=== PATIENT | female | born 1960 | race Caucasian/White ===

== ENCOUNTER → 2017-11-07 08:17 | Outpatient (CLI) | payer OTHER, SELFPAY ==
--- NOTE | 2017-11-07 08:27 | HPBI_ITS ---
MAMMOGRAPHY - BILATERAL SCREENING REASON FOR EXAM: Female, 57 years old. Routine annual screening examination. PERTINENT HISTORY: Sister with breast cancer. Remote bilateral breast reduction. TECHNIQUE: Digital bilateral breast paramjit (3D mammographic acquisition) in the CC and MLO projections. 2-D mediolateral oblique (MLO) and craniocaudad (CC) views of both breasts were obtained. CAD: Full Field Digital Mammography with Computer Added Detection was performed. COMPARISON: Comparison is made with prior outside examination dated November 04, 2016. FINDINGS: Breast Composition: The breasts are almost entirely fatty. There now is evidence of a 9 mm slightly irregular nodule with focal calcification in the axillary region of the left breast seen only on the mediolateral view. On the craniocaudad view, there appears to be a area of spiculation in the lateral portion. The patient should be recalled for exaggerated craniocaudad view of the left breast as well ultrasound. No other significant abnormalities are identified. HPBI/SCREENING MAMM (CAD), BILAT IMPRESSION: New nodular density in the axillary region of the left breast as described. The patient should be recalled for an exaggerated craniocaudal view of the left breast and ultrasound. ASSESSMENT CATEGORY: BIRADS Category 0: Incomplete. Need additional imaging evaluation. A letter regarding these results will be sent to the patient by the facility within 30 days. Approximately 10% of breast cancers are not detected by mammography. A normal mammogram should not delay biopsy of a clinically suspicious abnormality. [id number] Electronically Signed: Varun Escobar MD at 9:47 EST Tel [phone], Service support ,
== END ==
PROVIDERS: Family Provider Internal Medicine; PCP Internal Medicine; Visit Provider Nurse Practitioner Women's Health
DX: Z12.31 Encounter for screening mammogram for malignant neoplasm of breast (principal)
CPT/HCPCS: 77063; 77067

== ENCOUNTER → 2017-11-12 07:32 | Outpatient (CLI) | payer OTHER, SELFPAY ==
--- NOTE | 2017-11-12 07:36 | HPBI_ITS ---
MAMMOGRAPHY - UNILATERAL DIAGNOSTIC: LEFT BREAST REASON FOR EXAM: Female, 57 years old. Abnormal screening mammogram. PERTINENT HISTORY: Sister with breast cancer. TECHNIQUE: Exaggerated craniocaudad view of the left breast as well as tomographic examination of the left breast were obtained. CAD: Full Field Digital Mammography with Computer Added Detection was performed. COMPARISON: Comparison is made with prior mammogram dated November 07, 2017. FINDINGS: There is a persistent 7 mm nodular density with calcification in the upper the lateral portion of the breast. Correlation with ultrasound is recommended. BI/DIAG MAMM W/CAD, UNILAT IMPRESSION: Stable appearance of the nodular density as described. Correlation with ultrasound is recommended. ASSESSMENT CATEGORY: BIRADS Category 0: Incomplete. Need additional imaging evaluation. A letter regarding these results will be sent to the patient by the facility within 30 days. Approximately 10% of breast cancers are not detected by mammography. A normal mammogram should not delay biopsy of a clinically suspicious abnormality. Electronically Signed: Varun Escobar MD at 9:22 EST Tel [phone], Service support ,
--- NOTE | 2017-11-12 07:37 | US_ITS ---
STUDY: ULTRASOUND BREAST - LEFT REASON FOR EXAM: Female, 57 years old. Abnormal screening mammogram. TECHNIQUE: Axial and longitudinal images of the LEFT breast were performed with a high resolution ultrasound transducer. COMPARISON: Comparison is made with prior mammograms in earlier in the day as well as prior mammogram dated November 07, 2017. FINDINGS: LEFT Breast: The left axillary region was examined by ultrasound. There is a 9 mm x 9 mm x 5 mm hypoechoic nodule most likely represent a small lymph node. A calcification is seen within it. Adjacent to this, there is a 5 mm x 5 mm x 2 mm cyst. US/Breast Limited Unilateral IMPRESSION: The mammographic findings most likely corresponds to a benign appearing lymph node with focal calcification. ASSESSMENT CATEGORY: BIRADS Category 2: Benign. A letter regarding these results will be sent to the patient by the facility within 30 days. Electronically Signed: Varun Escobar MD at 10:18 EST Tel [phone], Service support ,
== END ==
PROVIDERS: Family Provider Internal Medicine; PCP Internal Medicine; Visit Provider Nurse Practitioner Women's Health
DX: R92.8 Other abnormal and inconclusive findings on diagnostic imaging of breast (principal); Z80.3 Family history of malignant neoplasm of breast
CPT/HCPCS: 76642; 77065

== ENCOUNTER → 2018-11-21 09:31 | Outpatient (CLI) | payer OTHER, SELFPAY ==
[2018-11-20 15:30] VITALS: BMI 29.2
--- NOTE | 2018-11-21 09:39 | BI_ITS ---
MAMMOGRAPHY - BILATERAL SCREENING REASON FOR EXAM: Female, 58 years old. Routine annual screening examination. PERTINENT HISTORY: Sister with breast cancer. History of prior bilateral breast reduction surgery. TECHNIQUE: Digital bilateral breast rusty (3D mammographic acquisition) in the CC and MLO projections. 2-D mediolateral oblique (MLO) and craniocaudad (CC) views of both breasts were obtained. CAD: Full Field Digital Mammography with Computer Added Detection was performed. COMPARISON: Comparison is made with prior mammogram dated November 07, 2017 and November 12, 2007. FINDINGS: Breast Composition: The breasts are almost entirely fatty. There are no dominant masses or suspicious calcifications. The previously seen small nodular density in the axillary region of the left breast has decreased in size. Persistent calcification is seen within it. The patient has a history of prior biopsy of this nodule. No other significant abnormalities are identified. BI/SCREEN MAMM (CAD) W/RUSTY BILAT IMPRESSION: Interval decrease in size of the small nodular density in the axillary region of the left breast as described. Yearly follow-up mammogram recommended. (A) ASSESSMENT CATEGORY: BIRADS Category 2: Benign. A letter regarding these results will be sent to the patient by the facility within 30 days. Approximately 10% of breast cancers are not detected by mammography. A normal mammogram should not delay biopsy of a clinically suspicious abnormality. [id number] Electronically Signed: Varun Escobar MD at 9:10 EST , Service support ,
== END ==
PROVIDERS: Referring Provider Nurse Practitioner Women's Health; Visit Provider Nurse Practitioner Women's Health
DX: Z12.31 Encounter for screening mammogram for malignant neoplasm of breast (principal)
CPT/HCPCS: 77063; 77067

== ENCOUNTER → 2018-11-30 08:25 | Outpatient (CLI) | payer OTHER, SELFPAY ==
[2018-11-20 15:30] VITALS: BMI 29.2
[2018-11-30 13:15] LABS: Anion Gap 5 (5-15); BUN 21 mg/dL (7-18); BUN/Creat Ratio 22.3 RATIO (10-20); Calcium,Total 9.2 mg/dL (8.5-10.1); Chloride 108 mmol/L (98-107); Creatinine, Serum 0.94 mg/dL (0.55-1.02); EST Glomerular Filtration Rate 65 mL/min (>60); Est Glom Filt Rate - Afr Amer 78 mL/min (>60); Glucose 72 mg/dL (74-106); Potassium 3.8 mmol/L (3.5-5.1); Sodium Level 142 mmol/L (136-145); Thyroid Stim Hormone (TSH) 0.89 uIU/mL (0.358-3.74)
== END ==
PROVIDERS: PCP Internal Medicine; Visit Provider Nurse Practitioner Family
DX: I10 Essential (primary) hypertension (principal)
CPT/HCPCS: 36415; 80048; 84443

== ENCOUNTER → 2019-01-22 10:45 | Outpatient (CLI) | payer OTHER, SELFPAY ==
[2019-01-01 09:31] VITALS: BMI 29.8
--- NOTE | 2019-01-22 10:48 | EKG12_ITS ---
Test Reason : HTN Blood Pressure : / mmHG Vent. Rate : 068 BPM Atrial Rate : 068 BPM P-R Int : 158 ms QRS Dur : 086 ms QT Int : 400 ms P-R-T Axes : 061 038 062 degrees QTc Int : 425 ms Normal sinus rhythm Nonspecific T wave abnormality Abnormal ECG Confirmed by SUKH LAROSE, AXEL ([id number]), commercial production editor BETTE JOSHI ([id number]) on 01/25/2019 12:06:14 PM Referred By: Eddy Villegas Confirmed By:AXEL LUZ MD
== END ==
PROVIDERS: Family Provider Internal Medicine; PCP Internal Medicine; Referring Provider Internal Medicine; Visit Provider Internal Medicine
DX: I10 Essential (primary) hypertension (principal)
CPT/HCPCS: 93005

== ENCOUNTER → 2019-03-03 | Outpatient (CLI) | payer OTHER, SELFPAY ==
[2019-01-01 09:31] VITALS: BMI 29.8
--- NOTE | 2019-03-03 09:58 | RDU_ITS ---
Reason For Study: HTN Right Renal Artery Left Renal Artery Right renal artery ostium 94/28 Left renal artery ostium 124/45 RSV/EDV. PSV/EDV. Right renal artery proximal 157/40 Left renal artery proximal PSV/EDV PSV/EDV. 144/56 . Right renal artery mid 167/72 Left renal artery mid 142/58 PSV/EDV. PSV/EDV . Right renal artery distal 79/29 Left renal artery distal 66/23 PSV/EDV. PSV/EDV. Right Renal Parenchyma Left Renal Parenchyma Upper Pole Medula 29/12 PSV/EDV. Left upper pole medulla 44/15 Right upper pole medulla EDR 0.41 . PSV/EDV . Right upper pole medulla R.I. Left upper pole medulla EDR 0.34 . 0.57 . Left upper pole medulla R.I. 0.67 . Upper Pelon Cortx 19/6 PSV/EDV. UP Cortex 24/11 PSV/EDV. Right upper pole cortex EDR 0.32 . Left upper pole cortex EDR 0.46 . Right upper pole cortex R.I. 0.68 . Left upper pole cortex R.I. 0.53 . Right lower Pole medulla 35/15 Left lower Pole medulla 24/9 PSV/EDV . PSV/EDV . Right lower pole medulla EDR 0.43 . Left lower pole medulla EDR 0.38 . Right lower pole medulla R.I. Left lower pole medulla R.I. 0.64 . 0.57 . Lower Pole Cortx 17/7 PSV/EDV. Lower Pole Cortex 24/9 PSV/EDV. Left lower pole cortex EDR 0.41 . Right lower pole cortex EDR 0.38 . Left lower pole cortex R.I. 0.61 . Right lower pole cortex R.I. 0.63 . Left Renal Hilar Right Renal Hilar LT Hilar avg 89/36 PSV/EDV . Right Hilar avg 65/25 PSV/EDV. Left hilar acceleration time 60 Right hilar acceleration time 50 m/sec. m/sec. Left Renal Dimensions Right Renal Dimensions Left kidney size 10.10 cm . Right kidney size 9.84 cm . Left cortical dimension 1.47 cm . Right cortical dimension 1.50 cm . Aorta Proximal abdominal aorta 2.59cm x 2.71 cm . Proximal abdominal aorta peak systolic velocity is 113 cm/sec . Distal abdominal aorta 1.73cm x 1.78 cm . Distal abdominal aorta peak systolic velocity is 76 cm/sec . Difficult to visualize mid Ao due to bowel gas. Interpretation Summary <60% stenosis bilateral renal arteries Right kidney 9.84cm length Left kidney 10.1 cm length Proximal aorta 2.59 x 2.71cm with slightly elevated velocity of 113 cm/sec flow. Findings likely not clinically significant. Ordering Physician: Lorena Wang Referring Physician: Lorena Wang Performed By: Marta Adams, MARNIE, RVT
== END | disposition home or self-care (01) ==
PROVIDERS: Family Provider Nurse Practitioner; PCP Nurse Practitioner; Referring Provider Nurse Practitioner; Visit Provider Nurse Practitioner
DX: I10 Essential (primary) hypertension (principal)
CPT/HCPCS: 93975

== ENCOUNTER → 2019-06-08 08:01 | Outpatient (CLI) | payer OTHER, SELFPAY ==
[2019-01-01 09:31] VITALS: BMI 29.8
[2019-06-08 09:28] LABS: ALB/GLOB Ratio 1.1 RATIO (0.9-2.4); AST(SGOT) 20 U/L (15-37); Alanine Aminotransfer ALT/SGPT 21 U/L (13-56); Albumin, Serum 3.6 g/dL (3.2-5.0); Alkaline Phosphatase 82 U/L (45-117); Anion Gap 6 (5-15); BUN 18 mg/dL (7-18); BUN/Creat Ratio 21.6 RATIO (10-20); Calcium,Total 8.8 mg/dL (8.5-10.1); Chloride 110 mmol/L (98-107); Creatinine, Serum 0.83 mg/dL (0.55-1.02); EST Glomerular Filtration Rate 74 mL/min (>60); Est Glom Filt Rate - Afr Amer 90 mL/min (>60); Globulin 3.3 g/dL (2.2-4.2); Glucose 74 mg/dL (74-106); Potassium 3.8 mmol/L (3.5-5.1); Protein, Total 6.9 g/dL (6.4-8.2); Sodium Level 145 mmol/L (136-145)
== END ==
PROVIDERS: Family Provider Nurse Practitioner; PCP Nurse Practitioner; Referring Provider Nurse Practitioner; Visit Provider Nurse Practitioner
DX: R79.9 Abnormal finding of blood chemistry, unspecified (principal); I10 Essential (primary) hypertension
CPT/HCPCS: 36415; 80053

== ENCOUNTER → 2019-06-30 08:42 | Outpatient (CLI) | payer OTHER, SELFPAY ==
[2019-01-01 09:31] VITALS: BMI 29.8
--- NOTE | 2019-06-30 08:50 | ECHOCS_ITS ---
Reason For Study: Sinus Simeon Procedure This was a 2D Doppler, Color Flow transthoracic echocardiogram. Contrast injection was performed. The study was technically difficult. Exam performed in department. Left Ventricle Normal size and thickness. The estimated ejection fraction is 65 %. Stage 1 diastolic dysfunction. No regional wall motion abnormalities noted. Right Ventricle Normal size and thickness. Normal systolic function. Atria Normal left atrium. Normal right atrium. Normal atrial septum. Mitral Valve The mitral valve is structurally normal. No prolapse or stenosis seen. Trivial mitral valve insufficiency. Tricuspid Valve Normal tricuspid valve. Trivial tricuspid valve insufficiency. Unable to estimate RV systolic pressure due to insufficient tricuspid regurgitant envelope. Aortic Valve Trisinus/trileaflet aortic valve. Normal aortic valve. Pulmonic Valve Normal pulmonic valve. Trivial pulmonic valve insufficiency. Great Vessels Normal aortic root. Normal arch. Normal inferior vena cava. Inferior vena cava collapse with sniff. Pericardium/Pleural No pericardial effusion. MMode/2D Measurements & Calculations LVIDd: 3.9 cm IVSd: 1.1 cm Ao root diam: 3.6 cm LVIDs: 2.5 cm LVPWd: 0.81 cm FS: 36.3 % LAV(MOD-bp): 44.9 ml LA A4 area: 14.5 cm2 RA A4 area: 10.8 cm2 LAV(MOD-bp) Indexed: 23.2 ml/m2 LAV(MOD-sp2): 47.5 ml LAV(MOD-sp4): 39.5 ml Time Measurements MV dec time: 0.26 sec Doppler Measurements & Calculations MV E max ryley: 60.5 cm/sec Lat Peak E' Ryley: 7.4 cm/sec Med Peak E' Ryley: 5.1 cm/sec MV A max ryley: 93.9 cm/sec E/E' lat: 8.2 E/E' med: 11.9 MV E/A: 0.64 MV V2 max: 97.3 cm/sec MV P1/2t max ryley: 74.2 cm/sec Ao V2 max: 117.3 cm/sec MV max P.8 mmHg MV P1/2t: 111.3 msec Ao max P.5 mmHg MV V2 mean: 47.0 cm/sec MV dec slope: 195.2 cm/sec2 Ao V2 mean: 73.1 cm/sec MV mean P.0 mmHg MVA(P1/2t): 2.0 cm2 Ao mean P.5 mmHg MV V2 VTI: 31.5 cm Ao V2 VTI: 23.1 cm LV V1 max: 82.1 cm/sec PA V2 max: 84.7 cm/sec PI end-d ryley: 93.4 cm/sec LV V1 max P.7 mmHg LV V1 mean P.2 mmHg LV V1 mean: 50.1 cm/sec LV V1 VTI: 17.6 cm Interpretation Summary The estimated ejection fraction is 65 %. Stage 1 diastolic dysfunction. Trivial mitral valve insufficiency. Trivial tricuspid valve insufficiency. Unable to estimate RV systolic pressure due to insufficient tricuspid regurgitant envelope. The study was technically limited. There is no comparison study available. Contrast injection was performed. Ordering Physician: Lorena Wang Referring Physician: Lorena Wang Performed By: Prabhu Schaffer RCS
== END ==
PROVIDERS: Family Provider Nurse Practitioner; PCP Nurse Practitioner; Referring Provider Nurse Practitioner; Visit Provider Nurse Practitioner
DX: R00.1 Bradycardia, unspecified (principal)
CPT/HCPCS: 93306; Q9957; A4216; C8929

== ENCOUNTER → 2019-07-14 09:22 | Outpatient (CLI) | payer OTHER, SELFPAY ==
[2019-01-01 09:31] VITALS: BMI 29.8
== END ==
PROVIDERS: Family Provider Nurse Practitioner; PCP Nurse Practitioner; Referring Provider Nurse Practitioner; Visit Provider Nurse Practitioner
DX: R00.1 Bradycardia, unspecified (principal)
CPT/HCPCS: 93225; 93226

== ENCOUNTER → 2019-10-05 15:36 | Outpatient (CLI) | payer OTHER, SELFPAY ==
[2019-01-01 09:31] VITALS: BMI 29.8
== END ==
PROVIDERS: Family Provider Nurse Practitioner; PCP Nurse Practitioner; Referring Provider Otolaryngology Otolaryngology/Facial Plastic Surgery; Visit Provider Otolaryngology Otolaryngology/Facial Plastic Surgery
DX: J32.9 Chronic sinusitis, unspecified (principal)
CPT/HCPCS: 87070; 87077; 87186; 87205

== ENCOUNTER → 2019-11-23 | Outpatient (CLI) | payer OTHER, SELFPAY ==
[2019-01-01 09:31] VITALS: BMI 29.8
[2019-11-22 09:15] VITALS: BMI 29.8
--- NOTE | 2019-11-23 08:06 | BI_ITS ---
MAMMOGRAPHY - BILATERAL SCREENING REASON FOR EXAM: Female, 59 years old. Routine annual screening examination. PERTINENT HISTORY: Bilateral breast reduction surgery TECHNIQUE: Digital bilateral breast rusty (3D mammographic acquisition) in the CC and MLO projections. 2-D mediolateral oblique (MLO) and craniocaudad (CC) views of both breasts were obtained. CAD: Full Field Digital Mammography with Computer Added Detection was performed. COMPARISON: Previously obtained on 11/21/2018 FINDINGS: Breast Composition: Fatty breast bilaterally There are no dominant masses or suspicious calcifications. No other significant abnormalities are identified. In the left breast there is a linear area of increased density which was seen previously and is probably due to residual scar formation from the patient''s previous breast reduction surgery. BI/SCREEN MAMM (CAD) W/RUSTY BILAT IMPRESSION: Stable bilateral screening mammogram. Yearly follow-up mammogram recommended. (A) ASSESSMENT CATEGORY: BIRADS Category 2: Benign. A letter regarding these results will be sent to the patient by the facility within 30 days. Approximately 10% of breast cancers are not detected by mammography. A normal mammogram should not delay biopsy of a clinically suspicious abnormality. [id number] Electronically Signed: Juan Francisco Shi, at 14:19 EST Tel , Service support ,
== END | disposition home or self-care (01) ==
LOC: OPBI 08:06
PROVIDERS: PCP Nurse Practitioner; Referring Provider Nurse Practitioner Women's Health; Visit Provider Nurse Practitioner Women's Health
DX: Z12.31 Encounter for screening mammogram for malignant neoplasm of breast (principal)
CPT/HCPCS: 77063; 77067

== ENCOUNTER → 2020-06-08 | Outpatient (CLI) | payer OTHER, SELFPAY ==
[2019-11-22 09:15] VITALS: BMI 29.8
[2020-06-08 16:22] LABS: Potassium 3.8 mmol/L (3.5-5.1)
== END | disposition home or self-care (01) ==
LOC: LAB 14:14
PROVIDERS: PCP Nurse Practitioner; Referring Provider Nurse Practitioner; Visit Provider Nurse Practitioner
DX: E87.5 Hyperkalemia (principal)
CPT/HCPCS: 36415; 84132

== ENCOUNTER → 2020-11-27 08:14 | Outpatient (CLI) | payer OTHER, SELFPAY ==
[2019-11-22 09:15] VITALS: BMI 29.8
--- NOTE | 2020-11-27 08:15 | BI_ITS ---
MAMMOGRAPHY - BILATERAL SCREENING REASON FOR EXAM: Female, 60 years old. Routine annual screening examination. PERTINENT HISTORY: Sister with breast cancer. History of prior bilateral breast reduction surgery. TECHNIQUE: Digital bilateral breast rusty (3D mammographic acquisition) in the CC and MLO projections. 2-D mediolateral oblique (MLO) and craniocaudad (CC) views of both breasts were obtained. CAD: Full Field Digital Mammography with Computer Added Detection was performed. COMPARISON: Comparison is made with prior study dated 11/23/2019 and 11/21/2018. FINDINGS: Breast Composition: The breasts are almost entirely fatty. There are no dominant masses or suspicious calcifications. Stable linear density of fibroglandular tissue in the inferior retroareolar region of the left breast. No other significant abnormalities are identified. There has been no significant change since the prior study. BI/SCRN MAMM (CAD)W/RUSTY BILAT IMPRESSION: Stable bilateral screening mammogram. Yearly follow-up mammogram recommended. (A) ASSESSMENT CATEGORY: BIRADS Category 2: Benign. A letter regarding these results will be sent to the patient by the facility within 30 days. Approximately 10% of breast cancers are not detected by mammography. A normal mammogram should not delay biopsy of a clinically suspicious abnormality. [id number] Electronically Signed: Varun Escobar MD at 9:06 EST , Service support ,
== END ==
PROVIDERS: PCP Nurse Practitioner; Referring Provider Nurse Practitioner Women's Health; Visit Provider Nurse Practitioner Women's Health
DX: Z12.31 Encounter for screening mammogram for malignant neoplasm of breast (principal)
CPT/HCPCS: 77063; 77067

== ENCOUNTER 2020-12-20 08:39 | Day surgery (SDC) | payer OTHER, SELFPAY ==
[2020-11-27 08:38] VITALS: BMI 30.2
[2020-12-20] VITALS (7 sets, daily range): BP systolic 88–105; BP diastolic 61–69; PULSE 59–71; RESP 16–18; TEMP 36.1; O2SAT 99–100; BMI 28.8
--- NOTE | 2020-12-20 | COLBX_PTH ---
PATIENT: SHAHID LEVINE LOC: EN U#:[id number] AGE/SX: 60/F ROOM: RE12/20/[address]: Dr. Danielle Thurman MD : 1960 BED: DIS: 12/20/2020 SPEC #: [id number] RECD: 12/20/20 12:15 STATUS: VEDA REQ #: [id number] KAUSHAL: 12/20/20 00:[address]: Danielle Thurman DEPT: SURGICAL PATHOLOGY RECD BY: Chetan Angeles ENTERED: 12/20/20 12:15 SP TYPE: COLON BX OTHR DR: Lorena Wang, BLOWER BLAST FURNACE-C Tissues: Cecum, NOS Procedures: Surgery Specimen Level IV HEADER OPERATION: Colonoscopy (MAC) PRE-OP DIAGNOSIS: Screening colonoscopy TISSUE SUBMITTED: Cecum polyp MICROSCOPIC DIAGNOSIS Cecal polyp, biopsy: Tubular adenoma. AM:marizol 12/21/2020 MICROSCOPIC DESCRIPTION Slides are reviewed. GROSS DESCRIPTION Received in fixative is one container labeled with the patient's name and designated cecum polyp biopsy. The specimen consists of one irregular fragment of light alvarez soft tissue that measures 0.7 x 0.2 x 0.1 cm. The specimen is totally submitted in one cassette. / SJ:marizol 12/20/20 TC:5 CPT: 36482
[2020-12-20] MEDS: Lactated Ringers 1,000 ML 100 ML IV (09:45)
--- NOTE | 2020-12-20 09:46 | H&P.OPEN ---
History of Present Illness Date of Admission: 12/20/20 The patient is a 60 year old F presents for screening colonoscopy. Patient's last colonoscopy about 10 years by ago by Dr. Antoine negative per patient. Patient denies any chronic abdominal pain/nausea/vomiting/reflux. Patient has bowel moods daily denies any blood. She denies any family history of colon cancer Past Medical/Surgical History - Planned Operation Planned Operative Procedure/s: colonoscopy Date of Operative Procedure: 12/20/20 Permit Signed: No S.O.S: No Is This Patient Having a Total Joint: No - Previous Hospitalizations/Surgeries HX Hospitalizations: Yes HX of Surgeries: Tonsillectomy. TUMMY TUCK. BREAST REDUCTION. KIDNEY STONES. TUBAL. 2016 hysterctomy. 11/2020 colonoscopy Any Problems With Anesthesia: Yes - PONV You/Your Family Experience Fever (Hyperthermia) With Anes: No Cholinesterase deficiency: No - Cardiovascular Hx Chest Pain within Last 2 months: No Hx of Irregular Heartbeat and/or Afib: No Hx Heart Attack: No Hx Congestive Heart Failure: No Hx Rheumatic Fever: No Hx Hypertension: Yes - controlled on med Hx Internal Defibrillator: No Hx Pacemaker: No Hx Cardiac Catheterization: No Hx Cardiac Surgery/Stents/Etc.: No Hx Stress Test: Yes - OR - [facility] NEG HX Edema: No Hx Pain in Legs when Walking/Leg Cramps: No - Respiratory Chronic Cough: No HX of Shortness of Breath: No Hoarseness: No Hx Chronic Obstructive Pulmonary Disease (COPD): No Hx Asthma: No Hx Emphysema: No Hx Sleep Apnea: No CPAP: No Hx Oxygen Use at Home: No Hx Respiratory Tract Infection/Cold (presently): No Do You Snore Loudly (louder than talking or can be heard): No Do You Often Feel Tired/ Fatigued/ Sleepy Dring Daytime?: No Has Anyone Observed You Stop Breathing During Sleep?: No Result (for STOP score): Negative Hx Smoking: No Smoking Status: Never smoker - Gastrointestinal Hx Gastroesophageal Reflux: No Hx Gastrointestinal Disorders: No Hx Gastrointestinal Bleed: No Hx Ulcer: No Hx Hiatal Hernia: No Difficulty Chewing/Swallowing: No Recent Onset of Swallowing Problems: No Special diet followed at home: No Hx Unplanned Weight Loss of 20#: No HX Unplanned Weight Gain of 20#: No - Neurological Hx Seizures: No HX Syncope/Blackout Spells/Unconsciousness: No Hx CVA/Stroke: No Hx Transient Ischemic Attacks (TIA): No Hx Multiple Sclerosis: No Hx Parkinson's Disease: No Hx Head/Neck Injury: No Hx Headaches: No Hx Back Injury/Pain: No Recent Onset of Speech Difficulty: No Restless Legs: No Does patient have nerve stimulator: No - Blood Disorder Hx Leukemia: No Bleeding Tendencies: No Hx Deep Vein Thrombosis: No Hx High Cholesterol: No Blood Transmitted Disease: No Hx Hepatitis: No Hx Cirrhosis: No Hx Anemia: No Hx Blood Disorders: No - Reproduction Is Patient Lactating: No Hx Hysterectomy: Yes Hx Tubal Ligation: Yes Are You Post Menopause: Yes - Genitourinary Hx Renal Disease: No - Musculoskeletal Hx Arthritis: No Hx Rheumatoid Arthritis: No Hx Gout: No Recent Onset of an Orthopedic Problem: No - Endocrine Hx Diabetes: No Thyroid Disease: No Hx Steroid Therapy: No - Psycho/Social Hx Substance Use: No Hx Alcohol Use: Yes - q 2 wks Hx Anxiety: No Hx Depression: No Mental Illness: No Hx Dementia: No - Miscellaneous Hx Cancer: No Recent Exposure to Contagious Disease: No Hx of C-Diff: No Any Loose Teeth: No Additional information pertinent to anesthesia:: none Allergies No Known Allergies Allergy (Verified 12/20/20 09:08) - Discharge Who Could Help: After D/C, Where Do you Plan to Go: Return Home - Physical Exam Vitals/I&O's: Vital Signs Temp Pulse Resp BP Pulse Ox 97.0 F L 71 16 105/69 99 12/20/20 09:09 12/20/20 09:09 12/20/20 09:09 12/20/20 09:09 12/20/20 09:09 Oxygen Delivery Method Room Air Weight: 178 lb 12.718 oz Body Mass Index (BMI) 28.8 General: Alert, Oriented x3, Cooperative, No apparent distress HEENT: Atraumatic Lungs: Normal air movement Cardiovascular: Regular rate Abdomen: Soft, Non Tender, Non-Distended Extremities: No clubbing, No cyanosis, No edema Neurological: Cranial nerves II-XII grossly intact Psych/Mental Status: Normal Affect Microbiology Past 72 Hours 12/19/20 08:50 Interface Orders SARS-CoV-2 Antigen (Rapid) - Final Current Medications Lactated Ringer's () 1,000 mls @ 100 mls/hr IV .Q10H FOR[facility]LY [facility], 1928–1983 Assessment/Plan All Active Problems (Last Reviewed 11/27/20 @ 08:37 by Daisy Lazo) Atrophic vaginitis (Acute) 60-year-old female screening for colon cancer Procedure Criteria Procedure Type: Elective COVID Risk Discussion: The surgeon/proceduralist and patient have discussed in detail the risk of exposure to and/or potential harm posed by the COVID-19 virus with having a surgery/procedure at this time versus the risk of delaying the surgery/procedure. It is not possible to know either the risk of delaying the surgery or procedure or chance of getting an infection with perfect accuracy, but a joint decision was made between the patient and the surgeon/proceduralist to proceed at this time with the scheduled surgery/procedure as indicated on the consent form. Surgery Risks - Colonoscopy I discussed with the patient the risks of the procedure: Yes Risks Include but are not Limited To: Risks include but are not limited to: Bleeding, perforation requiring further surgery, inability to complete colonoscopy requiring barium enema.
--- NOTE | 2020-12-20 12:38 | OP.COLON_ITS ---
Patient Name: Macarena Muhammad Procedure Date: 12/20/2020 9:55 AM Date of : 1960 Age: 60 Procedure: Colonoscopy Indications: Screening for colorectal malignant neoplasm Providers: Danielle Thurman MD Referring MD: Lorena Wang NP Medicines: Monitored Anesthesia Care Patient Profile: This is a 60 year old female. Last Colonoscopy: 10 years ago. Complications: No immediate complications. Procedure: Pre-Anesthesia Assessment: - Prior to the procedure, a History and Physical was performed, and patient medications and allergies were reviewed. The patient's tolerance of previous anesthesia was also reviewed. The risks and benefits of the procedure and the sedation options and risks were discussed with the patient. All questions were answered, and informed consent was obtained. Prior Anticoagulants: The patient has taken no previous anticoagulant or antiplatelet agents. ASA Grade Assessment: Per anesthesia. After reviewing the risks and benefits, the patient was deemed in satisfactory condition to undergo the procedure. After I obtained informed consent, the scope was passed under direct vision. Throughout the procedure, the patient's blood pressure, pulse, and oxygen saturations were monitored continuously. The pediatric colonoscope was introduced through the anus and advanced to the cecum, identified by the appendiceal orifice, ileocecal valve and palpation. The colonoscopy was performed without difficulty. The patient tolerated the procedure well. The quality of the bowel preparation was good. Scope In: 10:07:17 AM Scope Withdrawal Time 0 hours 10 minutes 54 seconds Scope Out: 10:37:51 AM Total Procedure Duration Time 0 hours 30 minutes 34 seconds Findings: Hemorrhoids were found on perianal exam. Non-bleeding external and internal hemorrhoids were found. The hemorrhoids were Grade I (internal hemorrhoids that do not prolapse). A less than 5 mm polyp was found in the cecum. The polyp was sessile. The polyp was removed with a cold biopsy forceps. Resection and retrieval were complete. Scattered small-mouthed diverticula were found in the sigmoid colon. The exam was otherwise without abnormality. Impression: - Hemorrhoids found on perianal exam. - Non-bleeding external and internal hemorrhoids. - One less than 5 mm polyp in the cecum, removed with a cold biopsy forceps. Resected and retrieved. - Diverticulosis in the sigmoid colon. - The examination was otherwise normal. Recommendation: - Discharge patient to home. - High fiber diet. - Continue present medications. - Await pathology results. - Repeat colonoscopy in 5 years for surveillance based on pathology results. Procedure Code(s): --- Professional --- 32428, PT, Colonoscopy, flexible; with biopsy, single or multiple Diagnosis Code(s): --- Professional --- Z12.11, Encounter for screening for malignant neoplasm of colon K64.0, First degree hemorrhoids D12.0, Benign neoplasm of cecum K57.30, Diverticulosis of large intestine without perforation or abscess without bleeding CPT copyright 2017 [employer]. All rights reserved. The codes documented in this report are preliminary and upon hardening machine operator helper review may be revised to meet current compliance requirements. MD Danielle Faria MD 12/20/2020 10:51:01 AM This report has been signed electronically. Number of Addenda: 0 Note Initiated On: 12/20/2020 9:55 AM
--- NOTE | 2020-12-20 12:38 | OP.CCLET_ITS ---
12/20/2020 Lorena Wang, [facility] [address] [place] [address] Re : Colonoscopy procedure for Macarena Muhammad Dear Ms. Wang This procedure was performed on Sunday, December 20, 2020. My impressions and recommendations are as follows: Impressions : - Hemorrhoids found on perianal exam. - Non-bleeding external and internal hemorrhoids. - One less than 5 mm polyp in the cecum, removed with a cold biopsy forceps. Resected and retrieved. - Diverticulosis in the sigmoid colon. - The examination was otherwise normal. Recommendations : - Discharge patient to home. - High fiber diet. - Continue present medications. - Await pathology results. - Repeat colonoscopy in 5 years for surveillance based on pathology results. My findings are described in the full procedure note, which is enclosed. If I can be of further assistance, please feel free to contact me at Doctor phone number(s): , Work: . Sincerely, MD Danielle Faria MD 12/20/2020 10:51:01 AM This report has been signed electronically.
== END 2020-12-20 11:28 | disposition home or self-care (01) ==
LOC: EN 08:42 → AC 08:42
PROVIDERS: PCP Nurse Practitioner; Referring Provider Nurse Practitioner; Visit Provider Surgery
PROC: 0DJD8ZZ Inspection of Lower Intestinal Tract, Via Natural or Artificial Opening Endoscopic (ICD-10-PCS; CPT 45378; principal; 2020-12-20 09:40)
DX: Z12.11 Encounter for screening for malignant neoplasm of colon (principal); D12.0 Benign neoplasm of cecum; K57.30 Diverticulosis of large intestine without perforation or abscess without bleeding; K64.0 First degree hemorrhoids; I10 Essential (primary) hypertension; Z79.899 Other long term (current) drug therapy; Z20.822 Contact with and (suspected) exposure to COVID-19
CPT/HCPCS: 45380; 87426; 88305; C9803; J7120

== ENCOUNTER → 2021-07-03 08:08 | Outpatient (CLI) | payer OTHER, SELFPAY ==
--- NOTE | 2021-07-03 08:19 | BD_ITS ---
STUDY: DUAL ENERGY X-RAY ABSORPTIOMETRY / DXA REASON FOR EXAM: Female, 61 years old. [id number]. Patient is postmenopausal. TECHNIQUE: Bone Mineral Density (BMD) measurements of lumbar spine and bilateral hips were obtained. COMPARISON: None. FINDINGS: Lumbar Spine (L1-L4): g/cm2 (0.897) / T-score (-1.4) / Z-score (0.2) Findings are suggestive of osteopenia with a low fracture risk. Left Femur Total: g/cm2 (0.872) / T-score (-0.6) / Z-score (0.5) Left Femoral Neck: g/cm2 (0.724) / T-score (-1.1) / Z-score (0.3) Right Femur Total: g/cm2 (0.953) / T-score (0.1) / Z-score (1.2) Right Femoral Neck: g/cm2 (0.861) / T-score (0.1) / Z-score (1.5) BD/Dexa Bone Density Study IMPRESSION: The patient is considered osteopenic as outlined below according to World Earnest Organization (WHO) criteria with a low fracture risk. Reference Information: The T-score is the number of standard deviations above or below the standard which is normal for young adults at their peak bone mineral density. The World Health Organization (WHO) interprets the T-scores as follows: Above -1 Normal bone density Between -1 and -2.5 Osteopenia Equal to / or below -2.5 Osteoporosis As a practical clinical guideline, osteopenia may be graded as follows: Mild -1 through -1.5 Moderate -1.6 through -2.0 Severe -2.1 through -2.4 The Z-score is the number of standard deviations above or below age-matched controls. A Z-score of less than -1.5 would be considered abnormal. References: 1. NIH Osteoporosis and Related Bone Diseases www osteo.org 2. International Society for Clinical Densitometry www iscd.org 3. National Osteoporosis Foundation www nof.org Electronically Signed: Varun Escobar MD at 14:05 EDT , Service support ,
== END ==
PROVIDERS: PCP Nurse Practitioner; Referring Provider Nurse Practitioner; Visit Provider Nurse Practitioner
DX: Z78.0 Asymptomatic menopausal state (principal)
CPT/HCPCS: 77080

== ENCOUNTER 2021-12-13 14:23 | Outpatient (CLI) | payer OTHER, SELFPAY ==
--- NOTE | 2021-12-13 14:25 | BI_ITS ---
MAMMOGRAPHY - BILATERAL SCREENING 3-D TOMOSYNTHESIS REASON FOR EXAM: Female, 61 years old. screening mammogram PERTINENT HISTORY: No significant family history. TECHNIQUE: 2-D mammograms and 3-D Tomosynthesis of the breast (s) were performed. CAD was performed. COMPARISON: 11/27/2020 FINDINGS: The breast composition is composed of scattered fibroglandular density. Scattered benign calcifications are seen. No dense spiculated masses or suspicious microcalcifications are identified. No architectural distortion is identified. There is no skin thickening or retraction. There has been no significant change since the prior study. BI/SCRN MAMM (CAD)W/RUSTY BILAT IMPRESSION: No mammographic signs of malignancy. Routine yearly mammograms recommended. ASSESSMENT CATEGORY: BIRADS Category 1: Negative. A letter regarding these results will be sent to the patient by the facility within 30 days. FOLLOW UP RECOMMENDATION: Yearly follow up mammogram recommended. (A) Approximately 10% of breast cancers are not detected by mammography. A normal mammogram should not delay biopsy of a clinically suspicious abnormality. Electronically Signed: Maxwell Katz MD at 17:15 EDT ,
== END 2021-12-13 23:59 | disposition home or self-care (01) ==
LOC: OPBI 14:23
PROVIDERS: PCP Nurse Practitioner; Visit Provider Nurse Practitioner Women's Health
DX: Z12.31 Encounter for screening mammogram for malignant neoplasm of breast (principal); R92.1 Mammographic calcification found on diagnostic imaging of breast
CPT/HCPCS: 77063; 77067

== ENCOUNTER 2022-09-03 16:20 | Outpatient (CLI) | payer SELFPAY | END 2022-09-03 23:59 | disposition home or self-care (01) | PROVIDERS: PCP Nurse Practitioner; Visit Provider Otolaryngology | DX: J01.90 Acute sinusitis, unspecified (principal) | CPT/HCPCS: 87070; 87077; 87205 ==

== ENCOUNTER → 2022-12-25 | Outpatient (CLI) | payer OTHER, SELFPAY | END | disposition home or self-care (01) | PROVIDERS: PCP Nurse Practitioner Family; Visit Provider Physician Assistant | DX: S90.421A Blister (nonthermal), right great toe, initial encounter (principal); X58.XXXA Exposure to other specified factors, initial encounter | CPT/HCPCS: 87070; 87186; 87205 ==

== ENCOUNTER → 2023-01-23 | Outpatient (CLI) | payer OTHER, SELFPAY ==
--- NOTE | 2023-01-23 09:10 | BI_ITS ---
MAMMOGRAPHY - BILATERAL SCREENING REASON FOR EXAM: Female, 63 years old. Routine annual screening examination. PERTINENT HISTORY: Sister with breast cancer. History of prior bilateral breast reduction surgery. TECHNIQUE: Digital bilateral breast rusty (3D mammographic acquisition) in the CC and MLO projections. 2-D mediolateral oblique (MLO) and craniocaudad (CC) views of both breasts were obtained. CAD: Full Field Digital Mammography with Computer Added Detection was performed. COMPARISON: Comparison is made with prior examination November 27, 2020 and December 13, 2021. FINDINGS: Breast Composition: The breasts are almost entirely fatty. There are no dominant masses or suspicious calcifications. Stable linear fibroglandular tissue seen in the retroareolar region of the left breast. No other significant abnormalities are identified. There has been no significant change since the prior study. BI/SCRN MAMM (CAD)W/RUSTY BILAT IMPRESSION: Stable bilateral screening mammogram. Yearly follow-up mammogram recommended. (A) ASSESSMENT CATEGORY: BIRADS Category 2: Benign. A letter regarding these results will be sent to the patient by the facility within 30 days. Approximately 10% of breast cancers are not detected by mammography. A normal mammogram should not delay biopsy of a clinically suspicious abnormality. [id number] Electronically Signed: Varun Escobar MD at 11:02 EDT ,
== END | disposition home or self-care (01) ==
LOC: OPBI 09:08
PROVIDERS: PCP Nurse Practitioner Family; Referring Provider Nurse Practitioner Women's Health; Visit Provider Nurse Practitioner Women's Health
DX: Z12.31 Encounter for screening mammogram for malignant neoplasm of breast (principal)
CPT/HCPCS: 77063; 77067

== ENCOUNTER → 2024-02-02 | Outpatient (CLI) | payer MEDICARE, OTHER, SELFPAY ==
--- NOTE | 2024-02-02 08:44 | BI_ITS ---
MAMMOGRAPHY - BILATERAL SCREENING REASON FOR EXAM: Female, 64 years old. Routine annual screening examination. PERTINENT HISTORY: Sister with breast cancer. Prior bilateral breast reduction surgery. TECHNIQUE: Digital bilateral breast rusty (3D mammographic acquisition) in the CC and MLO projections. 2-D mediolateral oblique (MLO) and craniocaudad (CC) views of both breasts were obtained. CAD: Full Field Digital Mammography with Computer Added Detection was performed. COMPARISON: Comparison is made with prior study January 23, 2023 and December 13, 2021. FINDINGS: Breast Composition: The breasts are almost entirely fatty. There are no dominant masses or suspicious calcifications. No other significant abnormalities are identified. There has been no significant change since the prior study. BI/SCRN MAMM (CAD)W/RUSTY BILAT IMPRESSION: Stable bilateral screening mammogram. Yearly follow-up mammogram recommended. (A) ASSESSMENT CATEGORY: BIRADS Category 1: Negative. A letter regarding these results will be sent to the patient by the facility within 30 days. Approximately 10% of breast cancers are not detected by mammography. A normal mammogram should not delay biopsy of a clinically suspicious abnormality. [id number] Electronically Signed: Varun Escobar MD at 10:09 EDT ,
== END | disposition home or self-care (01) ==
LOC: OPBI 08:40
PROVIDERS: PCP Nurse Practitioner Family; Visit Provider Nurse Practitioner Women's Health
DX: Z12.31 Encounter for screening mammogram for malignant neoplasm of breast (principal)
CPT/HCPCS: 77063; 77067

== ENCOUNTER → 2024-02-10 | Outpatient (CLI) | payer MEDICARE, OTHER, SELFPAY ==
--- NOTE | 2024-02-10 08:32 | RAD_ITS ---
INDICATION: Vertebrogenic low back pain EXAMINATION/TECHNIQUE: X-RAY - XR Spine Lumbar Min 4 Views: 5 views COMPARISON: None. FINDINGS: VERTEBRAE: 5 nonrib-bearing lumbar type vertebra. Mild levocurvature of the upper lumbar spine and dextrocurvature of the lower lumbar spine.. No fracture or acute compression deformity. No spondylolisthesis. Preservation of the normal lumbar lordosis. L4-L5 and L5-S1 facet arthropathy with prominent grade 1 anterolisthesis L4 on L5.. DISCS: Congenitally diminutive L5-S1 disc.. INCLUDED ABDOMEN: Included bowel gas pattern is non-obstructive. Large colonic stool burden. RAD/L/S Spine Min 4 Views IMPRESSION: No evidence of lumbar spinal fracture or spondylolisthesis. Moderate lumbar spondylosis with L4-5 listhesis. Large colonic stool burden. Electronically Signed: Pedro Piña MD at 23:15 EDT ,
--- NOTE | 2024-02-10 08:38 | RAD_ITS ---
INDICATION: Vertebrogenic low back pain/CERVICAL PAIN EXAMINATION/TECHNIQUE: X-RAY - XR Spine Cervical 4 or 5 Views COMPARISON: None. FINDINGS: VERTEBRAE: No fracture or acute compression deformity. Mild diffuse endplate osteophyte formation. Mild diffuse facet arthropathy most prominent in the mid cervical spine with mild bilateral neural foraminal narrowing. Mild straightening of the cervical lordosis without listhesis. DISCS: Mild disc height loss C6-C7 and C7-T1.. NECK SOFT TISSUES: No prevertebral soft tissue widening. LUNG APICES: Clear. RAD/Cerv Spine 4 or 5 Views IMPRESSION: No evidence of acute fracture or spondylolisthesis. Mild spondylosis as above. Electronically Signed: Pedro Piña MD at 23:09 EDT ,
== END | disposition home or self-care (01) ==
LOC: RAD 08:30
PROVIDERS: PCP Nurse Practitioner Family; Referring Provider Chiropractor; Visit Provider Chiropractor
DX: M54.51 Vertebrogenic low back pain (principal); M45.A7 Non-radiographic axial spondyloarthritis of lumbosacral region; M99.01 Segmental and somatic dysfunction of cervical region; M99.05 Segmental and somatic dysfunction of pelvic region; M99.03 Segmental and somatic dysfunction of lumbar region; M99.02 Segmental and somatic dysfunction of thoracic region; G56.03 Carpal tunnel syndrome, bilateral upper limbs
CPT/HCPCS: 72050; 72110

== ENCOUNTER → 2024-03-04 | Outpatient (CLI) | payer MEDICARE, OTHER, SELFPAY ==
--- NOTE | 2024-03-04 09:03 | BD_ITS ---
STUDY: DUAL ENERGY X-RAY ABSORPTIOMETRY / DXA REASON FOR EXAM: Female, 64 years old. Screening for osteoporosis TECHNIQUE: Bone Mineral Density (BMD) measurements of lumbar spine and bilateral hips were obtained. COMPARISON: Comparison is made with prior study dated July 03, 2021. FINDINGS: Lumbar Spine (L1-L4): g/cm2 (0.937) / T-score (-1.0) / Z-score (0.8) Findings are suggestive of osteopenia with a low fracture risk. Left Femur Total: g/cm2 (0.859) / T-score (-0.7) / Z-score (0.5) Left Femoral Neck: g/cm2 (0.739) / T-score (-1.0) / Z-score (0.5) Right Femur Total: g/cm2 (0.944) / T-score (0.0) / Z-score (1.2) Right Femoral Neck: g/cm2 (0.836) / T-score (-0.1) / Z-score (1.4) The T-Scores on the most recent prior examination were: Lumbar Spine (L1-L4): There has been improvement of bone density since the previous examination. Left Femur Total: which represents a worsening of 0.5%. Right Femur Total: which represents a worsening of 0.9%. BD/Dexa Bone Density Study IMPRESSION: The patient is considered osteopenic as outlined below according to World Earnest Organization (WHO) criteria with a low fracture risk. There has been worsening of bone density since the previous examination. Reference Information: The T-score is the number of standard deviations above or below the standard which is normal for young adults at their peak bone mineral density. The World Health Organization (WHO) interprets the T-scores as follows: Above -1 Normal bone density Between -1 and -2.5 Osteopenia Equal to / or below -2.5 Osteoporosis As a practical clinical guideline, osteopenia may be graded as follows: Mild -1 through -1.5 Moderate -1.6 through -2.0 Severe -2.1 through -2.4 The Z-score is the number of standard deviations above or below age-matched controls. A Z-score of less than -1.5 would be considered abnormal. References: 1. NIH Osteoporosis and Related Bone Diseases www osteo.org 2. International Society for Clinical Densitometry www iscd.org 3. National Osteoporosis Foundation www nof.org Electronically Signed: Varun Escobar MD at 9:58 EDT ,
== END | disposition home or self-care (01) ==
LOC: OPBD 08:47
PROVIDERS: PCP Nurse Practitioner Family; Referring Provider Nurse Practitioner Women's Health; Visit Provider Nurse Practitioner Women's Health
DX: M81.0 Age-related osteoporosis without current pathological fracture (principal)
CPT/HCPCS: 77080

== ENCOUNTER → 2024-06-16 | Outpatient (CLI) | payer MEDICARE, OTHER, SELFPAY ==
--- NOTE | 2024-06-16 11:18 | NEURO ---
NCS and/or EMG Patient Report Ordering Doctor: Estrada Chandler DATE OF SERVICE: 06/16/24 Macarena presents with numbness and tingling in both hands for the past several months. Electrodiagnostic findings right median motor nerve demonstrates prolonged latency with normal amplitude and conduction velocity. Left median motor nerve demonstrates prolonged latency with normal amplitude and reduced conduction velocity. Ulnar motor responses within normal limits bilaterally. Borderline prolonged median F?wave bilaterally. Absent median sensory responses at the wrist and palm. Normal ulnar and radial sensory responses. Needle EMG testing was performed the upper limbs. All muscles tested showed no evidence of denervation with normal motor unit action potentials. Electrodiagnostic impression: This is an abnormal study of the upper limbs 1. Electrodiagnostic findings suggestive of bilateral median mononeuropathy. This is consistent with a moderate to severe bilateral carpal tunnel syndrome. 2. No electrodiagnostic evidence for cervical radiculopathy. Multi Select Codes Neurology Neurology Interp Codes: 76482-64 Musc test done w/n test comp (interp) (2) and 81401-63 Nrv cndj test 13/> studies (interp)
== END | disposition home or self-care (01) ==
LOC: PSN 08:44
PROVIDERS: PCP Nurse Practitioner Family; Referring Provider Orthopaedic Surgery Orthopaedic Surgery of the Spine; Visit Provider Orthopaedic Surgery Orthopaedic Surgery of the Spine
DX: G56.00 Carpal tunnel syndrome, unspecified upper limb (principal); R26.81 Unsteadiness on feet
CPT/HCPCS: 95886; 95912

== ENCOUNTER → 2025-02-08 | Outpatient (CLI) | payer MEDICARE, OTHER, SELFPAY ==
--- NOTE | 2025-02-08 10:32 | BI_ITS ---
EXAM: SCRN MAMM (CAD)W/RUSTY BILAT DATE: 02/08/2025 CLINICAL HISTORY: F, Age 65 y/o , BREAST CANCER SCREENING Sister with breast cancer. History of prior bilateral breast reduction surgery. BREAST CANCER RISK ASSESSMENT: Not assessed. TECHNIQUE: Bilateral screening digital breast tomosynthesis with 2D and 3D images. Computer aided detection. COMPARISON: Prior exam(s) dated February 02, 2024.. FINDINGS: TISSUE DENSITY: The breast tissue is almost entirely fatty. Bilateral Breast Mammographic Findings: No significant masses, calcifications or other abnormalities are identified. No suspicious masses, areas of developing architectural distortion, or suspicious calcifications. There has been no significant interval change. BI/SCRN MAMM (CAD)W/RUSTY BILAT IMPRESSION: OVERALL FINAL ASSESSMENT: BIRADS 1 NEGATIVE RECOMMENDATION: Routine annual follow-up in 1 Year A letter with findings and recommendations will be mailed to the patient. Reading Location: [id number]
== END | disposition home or self-care (01) ==
PROVIDERS: PCP Nurse Practitioner Family; Referring Provider Nurse Practitioner Women's Health; Visit Provider Nurse Practitioner Women's Health
DX: Z12.31 Encounter for screening mammogram for malignant neoplasm of breast (principal)
CPT/HCPCS: 77063; 77067

== ENCOUNTER 2025-02-24 10:39 | Day surgery (SDC) | payer MEDICARE, OTHER, SELFPAY ==
--- NOTE | 2025-02-23 13:03 | PAT.ANE_ITS ---
Pre-Assessment Diagnosis/Proposed Procedure Planned Operative Procedure(s): ROBOTIC BILAT INGUINAL HERNIA'S WITH MESH Anesthesia History Anesthesia History - net developer architect: Anesthesia History - net developer architect Hx Hospitalization No 02/23/25 09:11 Any Problems With Anesthesia Yes: N,V 02/23/25 09:11 Cholinesterase deficiency No 02/23/25 09:11 You/Your Family Experience No 02/23/25 09:11 fever (hyperthermia) with Relationship Recent Exposure to Contagious No 12/20/20 09:09 Disease Does patient have nerve No 02/23/25 09:11 stimulator Patient instructed to have device shut off --Does patient have Pacemaker or ICD? When Was Last Pacemaker Check QUESTION #4 FULL TEXT: You/Your Family Experience fever (hyperthermia) with Anesthesia Last Oral Intake Last Oral intake: Last Oral Intake NPO since Meds taken in AM with sips of water? Meds patient instructed to take am of surgery PONV PONV - net developer architect: PONV - net developer architect Female Yes 02/23/25 09:11 HX of Motion Sickness Yes 02/23/25 09:11 HX of N/V After Surgery Yes 02/23/25 09:11 Non-Smoker Yes 02/23/25 09:11 Duration of Surgery greater Yes 02/23/25 09:11 than 60 minutes Number of Risk Factors 5 02/23/25 09:11 PONV Score Severe Risk 02/23/25 09:11 Height & Weight Height & Weight: Anesthesia: Height & Weight Height 5 ft 5 in 02/18/25 09:13 Respiratory Assessment Respiratory Assessment - net developer architect: Respiratory Tract Infection Hx - net developer architect Hx Respiratory Tract Infection No 02/23/25 09:11 STOP Sleep Apnea STOP Sleep Apnea - net developer architect: STOP Sleep Apnea - net developer architect Hx Hypertension Yes: CONTROLLED WITH MED 02/23/25 09:11 Hx Sleep Apnea No 02/23/25 09:11 CPAP No 12/20/20 10:41 BIPAP Do you snore loudly (louder No 02/23/25 09:11 than talking or can be heard Do you often feel tired/ No 02/23/25 09:11 fatigued/ sleepy during daytime? Has anyone observed you stop No 02/23/25 09:11 breathing during sleep? STOP Results Negative 02/23/25 09:11 QUESTION #5 FULL TEXT : Do you snore loudly (louder than talking or can be heard through closed doors)? Tobacco Use History Tobacco Use History - net developer architect: Tobacco Use History - net developer architect Tobacco Use Smoking Status Never smoker 02/23/25 09:11 Hx Tobacco Use No 02/23/25 09:11 Years Smoking Packs Smoked per Day Smoking Cessation Date was within the last 15 years Hx Smoking Cessation Date Hx Smoking Cessation Counseling Hematologic Medial History Hematologic Hx - net developer architect: Hematologic Medical Hx - bead preparer Hx of Blood Transfusion No 02/23/25 09:11 Hx of Transfusion in last 3 No 02/23/25 09:11 Months Date of Last Transfusion (if within last 3 months) Ever experience any problems No 02/23/25 09:11 with transfusion(s)? Specify any problems Hx of Preganancy in last 3 No 02/23/25 09:11 Months Nurse Filling Out Transfusion DSCHRIBER 02/23/25 09:11 & Questions: Date: 02/23/25 02/23/25 09:11 Time: 09:13 02/23/25 09:11 Patient unable to answer at this time (ie. confused, unrespo /Reproduction History /Reproductive History - net developer architect: /Reproductive Hx- net developer architect Hx Now No 02/23/25 09:11 Gestational Age (in weeks): EDC: Hx Hx Para Hx Section SAB No 02/23/25 09:11 Active Medications Active Medications: Current Medications Generic Name Dose Route Start Last Admin Trade Name Freq PRN Reason Stop Dose Admin Cefazolin Sodium 2 gm/ Sodium 110 mls @ 150 mls/hr 02/24/25 12:30 Chloride IV 02/24/25 13:13 INTRAOP ONE [facility] Medical History (Updated 02/23/25 @ 09:19 by Jessica Islas) Normal Holter exam History of echocardiogram Alcohol use Wears glasses Wears dentures History of steroid therapy PONV (postoperative nausea and vomiting) Non-smoker Hypertension Bilateral inguinal hernia Home Medications ?Medication ?Instructions ?Recorded ?Last Taken ?Type biotin 1 mg capsule 1 mg PO DAILY 07/25/16 Unkno wn History cholecalciferol (vitamin D3) 25 1,000 unit PO DAILY Unknown History mcg (1,000 unit) tablet amlodipine 5 mg tablet 5 mg PO DAILY #90 tabs 01/0712/20/20 Rx estradiol 0.01% (0.1 mg/gram) See Rx Instructions vagi nal DAILY 02/02/24 Unknown Rx vaginal cream #42.5 grams losartan 50 mg tablet 50 mg PO QHS 02/08/25 Unknow n History calcium no.26 167 mg-magnesium 1 cap PO DAILY 5 Unknown History no.15 83 mg-zinc 5 mg capsule (Jaqlyll-Ftbwzkdtx-Sidp Complex) fluticasone propionate 50 2 spray intranasal DAILY Unknown History mcg/actuation nasal spray,suspension pyridoxine (vitamin B6) 100 mg 100 mg PO DAILY 5 Unknown History tablet Allergy/AdvReac Type Severity Reaction Status Date / Time No Known Allergies Allergy Verified 02/23/25 09:08 Family History Sister Breast cancer Father Myocardial infarction Surgical History (Updated 02/23/25 @ 09:20 by Jessica Islas) Hx of colonoscopy History of carpal tunnel surgery of left wrist S/P carpal tunnel release H/O abdominoplasty History of tonsillectomy H/O bilateral breast reduction surgery History of hysterectomy Social History current occupational status: retired Smoking Status: Never smoker alcohol intake: current alcohol intake frequency: a few times a month substance use type: does not use caffeine: Yes what type of physical activity do you participate in: walking, yoga, weight training and other details: crossfit seatbelt use: always do you feel safe at home: Yes additional social history: -Rashaad- Retired Retired Audit: Pertinent Findings Pertinent Findings EKG Perinent findings: 01/22/2019. Normal sinus rhythm. Nonspecific T wave abnormality. Echo (EF%) pertinent findings: 06/30/2019. EF of 65%. No aortic stenosis noted. Recommendation Anesthesia Recommendation Anesthesia recommendation: OPTIMIZED for anesthesia
[2025-02-24] VITALS (12 sets, daily range): BP systolic 104–133; BP diastolic 68–78; PULSE 58–76; RESP 14–16; TEMP 36.3–37; O2SAT 88–100; BMI 29.5
--- NOTE | 2025-02-24 10:42 | EKG12_ITS ---
Test Reason : PREOP Blood Pressure : */* mmHG Vent. Rate : 62 BPM Atrial Rate : 62 BPM P-R Int : 168 ms QRS Dur : 92 ms QT Int : 438 ms P-R-T Axes : 21 -23 19 degrees QTcB Int : 444 ms Normal sinus rhythm Normal ECG When compared with ECG of 22-Jan-2019 11:03, Questionable change in QRS axis Confirmed by Ramon Mayen ([id number]), editor news BETTE JOSHI ([id number]) on 03/01/2025 8:10:49 AM Referred By: Danielle Thurman Confirmed By: Ramon Mayen
[2025-02-24] MEDS: Lactated Ringers 1,000 ML 15 ML IV ×2 (11:00→14:29)
--- NOTE | 2025-02-24 11:44 | HP.PCM_ITS ---
History and Physical Date of Admission: 02/24/25 Date of Service: 02/18/25 MR#: [id number] Acct: [id number] Name: SHAHID LEVINE Rep #: [id number] : 1960 Provider: Dr. Danielle Thurman MD Age/Sex: 65/F Location: [facility] Status: Signed Intake Vital Signs 02/08/2511:06 02/18/2509:13 Height 5 ft 5 in 5 ft 5 in Weight: 186 lb 2 oz BMI 30.9 BP 119/72 Blood Pressure Location Rt brachial Position Sitting Respiration 18 Pulse 66 Pulse Source Monitor Temp 97.6 F L Temp Source Temporal Pulse Oximetry (%) 99 Oxygen Delivery Method room air Intake Visit Reasons: INGUINAL HERNIA Chief Complaint: inguinal hernia Is patient in pain?: No Allergies No Known Allergies Allergy (Verified 02/18/25 09:15) Medications ?Medication ?Instructions ?Recorded ?Confirmed ?Type biotin 1 mg capsule 1 mg PO DAILY 07/25/16 02/08/25 History cholecalciferol (vitamin D3) 25 1,000 unit PO DAILY 07/25/16 02/08/25 Hi story mcg (1,000 unit) tablet calcium carbonate (Calcium 500) 500 mg PO DAILY supplement 10/23/1701/27 History amlodipine 5 mg tablet 5 mg PO DAILY #90 tabs 01/07/19 02/18/25 Rx ascorbic acid (vitamin C) 500 mg 500 mg PO DAILY 01/23/23 02/08/25 Histor y capsule,extended release estradiol 0.01% (0.1 mg/gram) See Rx Instructions vaginal DAILY 02/02/24 02/08/25 Rx vaginal cream #42.5 grams fexofenadine 60 mg tablet (Carol Ann 60 mg PO BID 05/21/24 02/08/25 History Allergy) losartan 50 mg tablet 50 mg PO QDAY 02/08/25 02/18/25 History Have you fallen in the past year?: No PFSH Medical History (Updated 02/18/25 @ 10:[address] Danielle Tuhrman MD) Bilateral inguinal hernia Seasonal allergies Surgical History S/P carpal tunnel release H/O abdominoplasty History of tonsillectomy H/O bilateral breast reduction surgery History of hysterectomy Family History Sister Breast cancerFather Myocardial infarction Social History current occupational status: retired Smoking Status: Never smoker alcohol intake: current alcohol intake frequency: a few times a month substance use type: does not use caffeine: Yes what type of physical activity do you participate in: walking, yoga, weight training and other details: crossfit seatbelt use: always do you feel safe at home: Yes additional social history: -Rashaad- Retired Retired HPI HPI HPI: 65-year-old female presents due to bilateral inguinal hernias. Patient states in September initially noticed the right inguinal hernia but has also noticed a smaller 1 on the left. Patient states it is noticed double that it is there but does not have a lot of pain. Patient states that there is a bulge and she is able to push it back and also it will go back in with laying down. Previous abdominal surgery abdominoplasty and hysterectomy. ROS General General: No weight change, appetite, fatigue, colon cancer, breast cancer or weakness HEENT HEENT: No difficulty swallowing, eye injury, eye surgery, swollen glands or hoarseness Endo Endocrine: No thyroid disease, diabetes mellitus, thyroid cancer, Hair loss, heat intolerance or cold intolerance Skin Skin: No rash or changing moles Musc Musculoskeletal: No back problems, arthritis, rheumatoid arthritis, gout or joint pain Cardio Cardiovascular: Yes high blood pressure; No murmur, pacemaker, heart disease, atrial fibrillation, heart attack, heart stent, palpitations, shortness of breath with exertion or chest pain Psych Psychiatric: No depression, anxiety or hearing voices Resp Respiratory: No shortness of breath, No sleep apnea, No cough, No COPD, No asthma, No emphysema and No wheezing Gastro Gastrointestinal: No abdominal pain, No nausea or vomiting, No diarrhea, No constipation, No blood in stool, No acid reflux, Yes hemorrhoids, No ulcers, No gallbladder problem and No black,tarry stools Evans Hematologic: No blood thinners, No blood disorders, No bleeding, No anemia and No blood clots Neuro Neurologic: No numbness, No tingling and No weakness Exam Const General: cooperative, healthy appearing, comfortable and no acute distress [facility] Head: normocephalic and atraumatic Neck Neck: supple Resp Effort & Inspection: normal respiratory effort Cardio Rate: regular rate GI Inspection: non-distended and incision (Well-healed abdominoplasty incisions) Palpation: soft, hernia (Bilateral inguinal hernias, reducible) and nontender Skin General: no rashes or lesions noted Neuro General: CN's II-XI intact bilaterally Extrem General: normal to inspection Psych Mental Status: mental status grossly normal Attitude: cooperative Assessment and Plan Assessment and Plan (1) Bilateral inguinal hernia: Status: Acute Plan Plan to do robotic bilateral inguinal hernia repair with mesh. Reviewed the procedure with the patient including the risks, including but not limited to infection, bleeding, paresthesia, chronic pain, injury to small bowel, and recurrence. All questions were answered. Danielle Thurman M.D. Pager: [phone] [facility] [address] [place] [address], [address] [place] [address] Office: [phone] Coding Level of Care Code Off vis,new,level 3 Diagnoses Bilateral inguinal hernia K40.20 Clinical Quality Measures Falls Risk Screening/Assistive Devices Have you fallen in the past year?: No 02/18/25 1052 <Electronically signed by Danielle Thurman MD> Date Danielle Thurman MD
--- NOTE | 2025-02-24 11:45 | PCM.PRE.AN2 ---
ASA Classification* ASA Classification ASA Classification: 2 (HTN, hx of PONV (please do TIVA)) Assessment & Plan Anesthesia* Anesthesia Assessment Anesthesia Assessment: Discussed sedation and/or anesthesia options, risks, benefits, and alternatives with patient/parents/legal guardian/POA. Questions invited. The patient/parents/legal guardian/POA seems to understand and agrees to proceed with anesthesia plan. Reviewed the physical assessment, medical history, allergy history and patient home medications list prior to surgery/procedure/anesthetic and documented any changes. Performed airway and anesthesia risk assessments. Anesthesia Type Anesthesia Type: General (TIVA) History Source History Obtained from:: Patient and Chart Anesthesia Focused Assessment* Temperature: 97.8 F Pulse Rate: 58 Blood Pressure: 133/78 Respiratory Rate: 16 Pulse Ox: 98 Oxygen Delivery Method: Room Air Airway Assessment Mouth opens: >3 cm Mallampati Score: II Teeth Condition: Intact Neck Range of motion (ROM): Full ROM Focused Labs Anesthesia Preop lab: CBC WBC 3.9 K/mm3 (4.4-11.0) L 01/22/19 08:30 01/22/19 RBC 5.01 M/mm3 (4.2-5.4) 01/22/19 08:30 01/22/19 Hgb 13.9 g/dl (12.0-15.0) 01/22/19 08:30 01/22/19 Hct 42.6 % (37-47) 01/22/19 08:30 01/22/19 Plt Count 221 K/mm3 (150-450) 01/22/19 08:30 01/22/19 CHEMISTRY Potassium 3.8 mmol/L (3.5-5.1) 06/08/20 14:32 06/08/20 Sodium 145 mmol/L (136-145) 06/08/19 08:10 06/08/19 BUN 18 mg/dL (7-18) 06/08/19 08:10 06/08/19 Creatinine 0.83 mg/dL (0.55-1.02) 06/08/19 08:10 06/08/19 Glucose 74 mg/dL (74-106) 06/08/19 08:10 06/08/19 TSH 0.89 uIU/mL (0.358-3.74) 11/30/18 08:28 11/30/18 COAG Urine Test Negative Negative 08/01/16 05:40 08/01/16 Pre-Assessment Diagnosis/Proposed Procedure Planned Operative Procedure(s): ROBOTIC BILAT INGUINAL HERNIA'S WITH MESH Anesthesia History Anesthesia History - forensics analyst: Anesthesia History - forensics analyst Hx Hospitalization No 02/23/25 09:11 Any Problems With Anesthesia Yes: N,V 02/23/25 09:11 Cholinesterase deficiency No 02/23/25 09:11 You/Your Family Experience No 02/23/25 09:11 fever (hyperthermia) with Relationship Recent Exposure to Contagious No 02/24/25 11:04 Disease Does patient have nerve No 02/23/25 09:11 stimulator Patient instructed to have device shut off --Does patient have Pacemaker No 02/24/25 11:04 or ICD? When Was Last Pacemaker Check QUESTION #4 FULL TEXT: You/Your Family Experience fever (hyperthermia) with Anesthesia Last Oral Intake Last Oral intake: Last Oral Intake NPO since 23:00 02/24/25 11:04 Meds taken in AM with sips of Yes 02/24/25 11:04 water? Meds patient instructed to 0800 amylodipine 02/24/25 11:04 take am of surgery PONV PONV - forensics analyst: PONV - forensics analyst Female Yes 02/23/25 09:11 HX of Motion Sickness Yes 02/23/25 09:11 HX of N/V After Surgery Yes 02/23/25 09:11 Non-Smoker Yes 02/23/25 09:11 Duration of Surgery greater Yes 02/23/25 09:11 than 60 minutes Number of Risk Factors 5 02/23/25 09:11 PONV Score Severe Risk 02/23/25 09:11 Height & Weight Height & Weight: Anesthesia: Height & Weight Height 5 ft 6 in 02/24/25 11:04 Weight: 83 kg 02/24/25 11:04 Body Mass Index (BMI) 29.5 02/24/25 11:04 Respiratory Assessment Respiratory Assessment - forensics analyst: Respiratory Tract Infection Hx - forensics analyst Hx Respiratory Tract Infection No 02/23/25 09:11 STOP Sleep Apnea STOP Sleep Apnea - forensics analyst: STOP Sleep Apnea - forensics analyst Hx Hypertension Yes: CONTROLLED WITH MED 02/23/25 09:11 Hx Sleep Apnea No 02/23/25 09:11 CPAP No 12/20/20 10:41 BIPAP Do you snore loudly (louder No 02/23/25 09:11 than talking or can be heard Do you often feel tired/ No 02/23/25 09:11 fatigued/ sleepy during daytime? Has anyone observed you stop No 02/23/25 09:11 breathing during sleep? STOP Results Negative 02/23/25 09:11 QUESTION #5 FULL TEXT : Do you snore loudly (louder than talking or can be heard through closed doors)? Tobacco Use History Tobacco Use History - forensics analyst: Tobacco Use History - forensics analyst Tobacco Use Smoking Status Never smoker 02/23/25 09:11 Hx Tobacco Use No 02/23/25 09:11 Years Smoking Packs Smoked per Day Smoking Cessation Date was within the last 15 years Hx Smoking Cessation Date Hx Smoking Cessation Counseling Hematologic Medial History Hematologic Hx - forensics analyst: Hematologic Medical Hx - information systems security developer Hx of Blood Transfusion No 02/23/25 09:11 Hx of Transfusion in last 3 No 02/23/25 09:11 Months Date of Last Transfusion (if within last 3 months) Ever experience any problems No 02/23/25 09:11 with transfusion(s)? Specify any problems Hx of Preganancy in last 3 No 02/23/25 09:11 Months Nurse Filling Out Transfusion DSCHRIBER 02/23/25 09:11 & Questions: Date: 02/23/25 02/23/25 09:11 Time: 09:13 02/23/25 09:11 Patient unable to answer at this time (ie. confused, unrespo /Reproduction History /Reproductive History - forensics analyst: /Reproductive Hx- forensics analyst Hx Now No 02/23/25 09:11 Gestational Age (in weeks): EDC: Hx Hx Para Hx Section SAB No 02/23/25 09:11 Active Medications Active Medications: Current Medications Generic Name Dose Route Start Last Admin Trade Name Freq PRN Reason Stop Dose Admin Cefazolin Sodium 2 gm/ Sodium 110 mls @ 150 mls/hr 02/24/25 12:30 Chloride IV 02/24/25 13:13 INTRAOP ONE Lactated Ringer's 1,000 mls @ 15 mls/hr 02/24/25 11:00 02/24/25 11:00 IV 15 mls/hr .Q48H [facility] Administration [facility] Medical History (Updated 02/23/25 @ 09:19 by Jessica Islas) Normal Holter exam History of echocardiogram Alcohol use Wears glasses Wears dentures History of steroid therapy PONV (postoperative nausea and vomiting) Non-smoker Hypertension Bilateral inguinal hernia Home Medications ?Medication ?Instructions ?Recorded ?Last Taken ?Type biotin 1 mg capsule 1 mg PO DAILY 07/25/16 Unknown History cholecalciferol (vitamin D3) 25 1,000 unit PO DAILY 07/25/16 Unknown History mcg (1,000 unit) tablet amlodipine 5 mg tablet 5 mg PO DAILY #90 tabs 01/07/19 02/24/25 08:00 Rx estradiol 0.01% (0.1 mg/gram) See Rx Instructions vaginal DAILY 02/02/24 Unknown Rx vaginal cream #42.5 grams losartan 50 mg tablet 50 mg PO QHS 02/08/25 Unknown History calcium no.26 167 mg-magnesium 1 cap PO DAILY 02/23/25 Unknown History no.15 83 mg-zinc 5 mg capsule (Wwrqyev-Ipijfmwjr-Akme Complex) fluticasone propionate 50 2 spray intranasal DAILY 02/23/25 Unknown History mcg/actuation nasal spray,suspension pyridoxine (vitamin B6) 100 mg 100 mg PO DAILY 02/23/25 Unknown History tablet Allergy/AdvReac Type Severity Reaction Status Date / Time No Known Allergies Allergy Verified 02/23/25 09:08 Family History Sister Breast cancer Father Myocardial infarction Surgical History (Updated 02/23/25 @ 09:20 by Jessica Islas) Hx of colonoscopy History of carpal tunnel surgery of left wrist S/P carpal tunnel release H/O abdominoplasty History of tonsillectomy H/O bilateral breast reduction surgery History of hysterectomy Social History current occupational status: retired Smoking Status: Never smoker alcohol intake: current alcohol intake frequency: a few times a month substance use type: does not use caffeine: Yes what type of physical activity do you participate in: walking, yoga, weight training and other details: crossfit seatbelt use: always do you feel safe at home: Yes additional social history: -Rashaad- Retired Retired Review of Systems (Anesthesia) ROS Narrative System reviewed and no additional complaints, except as documented. Physical Exam Const alert, oriented x3 and average body habitus Resp normal respiratory effort, normal air movement and clear to auscultation bilaterally Cardio regular rate, regular rhythm, no murmurs and diaphoretic
[2025-02-24] MEDS: Cefazolin 2 GM in 0.9% Normal Saline (100mL Bag) 100 ML IV (12:26)
--- NOTE | 2025-02-24 13:57 | OP.PCM_ITS ---
Operative Report (Standard) Operative Information Date of Procedure: 02/24/25 Pre-Operative Diagnosis: Bilateral inguinal hernias Post-Operative Diagnosis: Bilateral indirect inguinal hernias, bilateral inguinal canal lipomas Surgery/Procedure Performed: Robotic bilateral inguinal hernia repairs with mesh geography department chair: Yes [employer] D[employer]: Hector [place] Tasks completed by educational/development assistant: Opening & closing Type of Anesthesia: General/Supplemental RN Documented Start/Stop Times: Operation Date: 02/24/25 12:30 Case Time Into Pre-Op 02/24/25 10:52 Anesthesia Start 02/24/25 12:23 Into Room 02/24/25 12:23 Procedure Start 02/24/25 12:44 Procedure End 02/24/25 14:06 Anesthesia End 02/24/25 14:11 Out of Room 02/24/25 14:11 Into Recovery 02/24/25 14:12 Procedure Start Time: 12:44 Procedure Stop Time: 14:06 Select all DRAINS/GRAFTS/IMPLANTS that apply: Implanted device Implanted device details: ProGrip mesh bilateral LAD [id number] ref [id number] Special Medications: Ancef 2 g IV x 1 Estimated Blood Loss: < 10 Specimen collected: No Description of surgery: Indications: 65-year-old female presented with bilateral symptomatic inguinal hernias. Robotic bilateral inguinal hernia repairs with mesh were elected elected patient was agreeable. Description of procedure: Patient was brought to operating room placed supine operative table. Timeout was completed verifying correct patient, procedure, site, positioning, special, prior to beginning procedure. General anesthesia was induced. Patient's arms were tucked and padded appropriately. Visiport was used to make the incision at Jones's point in the left upper quadrant. Entry into the abdomen was confirmed visually. Laparoscope was pl aced. Verifying no injury during initial trocar placement. Patient was placed in Trendelenburg position. Two 8 mm trochars were placed along the horizontal line in the midline and in the right upper quadrant. The initial 5 mm trocar was upsized to an 8 mm well under direct visualization. The robot was docked. Both the inguinal regions were inspected and left indirect and right direct hernias were seen. Both procedures done similarly. The median umbilical ligament was divided sharply with electrocautery. Peritoneum was incised with the endoscopic scissors along a line 2 cm above the superior edge of the hernia defect extending from the median umbilical ligament to anterior superior iliac spine. Peritoneal flap was mobilized inferiorly using blunt and sharp/cautery dissection. The inferior epigastric vessels were exposed and symphysis pubis and identified. The left/right indirect hernia sac was inverted and dissected. Inguinal canal lipomas were reduced bilaterally. Ligament was identified and ligated using the ProGrasper with cautery. A ProGrip mesh were used bilaterally. The mesh was rolled longitudinally into a compact cylinder and passed through the trocar. The cylinder was placed along the inferior aspect of the working space and unrolled into place to completely cover the direct, indirect and femoral spaces. The peritoneal flap was closed over mesh and secured with 3-0 V-Loc suture. After ensuring adequate hemostasis, the trochars were removed and pneumoperitoneum allowed to escape. Robot is undocked. The skin was closed with 4-0 Monocryl interrupted sutures and Steri-Strips. Patient tolerated procedure well was taken to the postanesthesia care unit in stable condition. Surgical Findings: See operative report Complications Complications: No
[2025-02-24] MEDS: Bupivacaine Mpf 0.5% 30 ML VIAL (13:58)
--- NOTE | 2025-02-24 14:01 | EX.PCM.DISCH ---
Discharge Instructions Diet Discharge Diet: Light diet - advance as tolerated Activity Discharge Activity: May Not Drive (while taking narcotic pain medications.) May shower in (days): 1 Lifting Restrictions: no lifting >20 lbs x 2 wks, no strenuous exercise for 4 wks Dressing / Incision Call your doctor if your incision/area has: Continuous Slow Oozing, Sudden Increased Bleeding, Increased Pain/ Swelling, Increased Redness, Foul Smelling Discharge and Swelling at the incision site Call your doctor if you observe: Fever of 101 or Higher Remove Dressing in: 2 days Cleanse incision/area with: Soap & Water Additional Dressing/Incision Instructions:: Steri-Strips will fall off in 7 to 10 days, if they do not fall off okay to remove after 10 days. Follow Up Care Please Follow Up With: Danielle Thurman MD When: Call the office for a follow-up appointment 2 weeks; after 5 PM and on the weekends call [phone] with any concerns. Test Results: Test results from this visit will be discussed in further detail at your follow-up appointment, if applicable. Discharge Plan Admission Attending Provider: Danielle Thurman Primary Care Provider: Jillian Garcia Instructions Print Language: [place] Citizen Discharge Orders/Prescriptions Prescriptions: New tramadol 50 mg tablet 50 mg PO Q6H PRN (Reason: pain) Qty: 7 0RF Continued estradiol 0.01 % (0.1 mg/gram) cream See Rx Instructions VAGINAL DAILY Qty: 42.5 2RF Rx Instructions: Small amount vaginally 2-3 nights per week losartan 50 mg tablet 50 mg PO QHS cholecalciferol (vitamin D3) 1,000 UNIT tablet 1,000 unit PO DAILY Patient Comments: supplement biotin 1 MG capsule 1 mg PO DAILY Patient Comments: supplement fluticasone propionate 50 mcg/actuation spray,suspension 2 spray INTRANASAL DAILY Aisqkqw-Hseeqnzys-Wwhd Complex 167 mg calcium- 83 mg-5 mg capsule 1 cap PO DAILY pyridoxine (vitamin B6) 100 mg tablet 100 mg PO DAILY amlodipine 5 mg tablet 5 mg PO DAILY Qty: 90 1RF Referrals / Follow Up: Jillian Garcia, [facility] [Primary Care Provider] - Disposition Disposition (needs filled in before D/C Order can be placed): Home, Self Care
--- NOTE | 2025-02-24 14:14 | PCM.POST.ANE ---
Anesthesia: Postop Eval I Current Vital Signs Temperature: 98.2 F Pulse Rate: 64 Blood Pressure: 117/74 Respiratory Rate: 16 Pulse Ox: 98 Oxygen Delivery Method: Simple Mask Oxygen Flow Rate (L/min): 6 Assessment Airway patent: Yes Spontaneous unlabored respirations: Yes Mental status: Awake and Calm nausea: No Vomiting: No Anesthesia Complication: No Fluid Hydration Crystalloid volume administer (ml): 900 Total IV fluid infused: 900 Progress Note Anesthesia document: Postop Eval 1 completed: Yes
--- NOTE | 2025-02-24 14:18 | POSTOPAN2_ITS ---
Anesthesia Postop Eval I Sum Postop Eval Completion status Anesthesia document: Postop Eval 1 completed: Yes Anesthesia Postop Eval I Summary Anesthesia Postop Eval I Summary: Anesthesia Postop Eval I: Assessment Summary Airway patent Yes 02/24/25 14:15 AIDS COUNSELOR.MEDM Spontaneous unlabored Yes 02/24/25 14:15 AIDS COUNSELOR.MEDM respirations Mental status Awake,Calm 02/24/25 14:15 AIDS COUNSELOR.MEDM nausea No 02/24/25 14:15 AIDS COUNSELOR.MEDM Vomiting No 02/24/25 14:15 AIDS COUNSELOR.MEDM Anesthesia Postop Eval I: Fluid Summary Crystalloid volume administer 900 02/24/25 14:15 AIDS COUNSELOR.MEDM (ml) Colloids volume administered ( ml) Blood Product volume administered (ml) Total IV fluid infused 900 02/24/25 14:15 AIDS COUNSELOR.MEDM Anesthesia Postop Eval I: Summary Notes Anesthesia Complication No 02/24/25 14:15 AIDS COUNSELOR.MEDM Anesthesia Complication Comment: Post-operative progress note Anesthesia: Postop Eval II Evaluation Mental status: Awake and Calm Pain Level: 2 nausea: No Vomiting: No
--- NOTE | 2025-02-24 14:18 | PCM.POSTANE2 ---
Anesthesia Postop Eval I Sum Postop Eval Completion status Anesthesia document: Postop Eval 1 completed: Yes Anesthesia Postop Eval I Summary Anesthesia Postop Eval I Summary: Anesthesia Postop Eval I: Assessment Summary Airway patent Yes 02/24/25 14:15 DYNAMO TENDER.MEDM Spontaneous unlabored Yes 02/24/25 14:15 DYNAMO TENDER.MEDM respirations Mental status Awake,Calm 02/24/25 14:15 DYNAMO TENDER.MEDM nausea No 02/24/25 14:15 DYNAMO TENDER.MEDM Vomiting No 02/24/25 14:15 DYNAMO TENDER.MEDM Anesthesia Postop Eval I: Fluid Summary Crystalloid volume administer 900 02/24/25 14:15 DYNAMO TENDER.MEDM (ml) Colloids volume administered ( ml) Blood Product volume administered (ml) Total IV fluid infused 900 02/24/25 14:15 DYNAMO TENDER.MEDM Anesthesia Postop Eval I: Summary Notes Anesthesia Complication No 02/24/25 14:15 DYNAMO TENDER.MEDM Anesthesia Complication Comment: Post-operative progress note Anesthesia: Postop Eval II Evaluation Mental status: Awake and Calm Pain Level: 2 nausea: No Vomiting: No
[2025-02-24] MEDS: Acetaminophen 500 MG Tablet 1000 MG PO (15:22)
== END 2025-02-24 16:28 | disposition home or self-care (01) ==
LOC: SDC 10:40 → AC 10:41
PROVIDERS: PCP Nurse Practitioner Family; Referring Provider Surgery; Visit Provider Surgery
PROC: (CPT 49650; principal; 2025-02-24 12:10)
DX: K40.20 Bilateral inguinal hernia, without obstruction or gangrene, not specified as recurrent (principal); I10 Essential (primary) hypertension; D17.5 Benign lipomatous neoplasm of intra-abdominal organs; Z79.899 Other long term (current) drug therapy
CPT/HCPCS: 49650; S2900; 00840; 93005; C1781; J2405

== ENCOUNTER → 2025-06-17 | Outpatient (CLI) | payer MEDICARE, OTHER, SELFPAY ==
--- NOTE | 2025-06-17 08:53 | ECHOD_ITS ---
Reason For Study Reason For Study: HEART DISEASES Procedure This was a 2D Doppler, Color Flow transthoracic echocardiogram. Exam performed in department. Left Ventricle Normal LV size. Left ventricular systolic function is normal. The left ventricular ejection fraction is 65 %. Stage 1 diastolic dysfunction. No regional wall motion abnormalities noted. Right Ventricle Normal RV size. Normal systolic function. Atria Normal left atrium. Normal right atrium. Mitral Valve Normal mitral valve. Tricuspid Valve Normal tricuspid valve. Mild (1+) tricuspid valve insufficiency. Pulmonary artery systolic pressure is 20 mmHg. Aortic Valve Trisinus/trileaflet aortic valve. Pulmonic Valve Normal pulmonic valve. Great Vessels Mild to moderately dilated aortic root. The pulmonary artery is normal size. Inferior vena cava collapse with respiration. Pericardium/Pleural No pericardial effusion. MMode/2D Measurements & Calculations LVIDd: 4.7 cm IVSd: 1.0 cm LVOT diam: 2.2 cm LVIDs: 3.0 cm LVPWd: 0.97 cm LVOT area: 3.8 cm2 RVDd: 4.2 cm FS: 37.1 % asc Aorta Diam: 4.1 cm LAV(MOD-bp): 32.4 ml LVAd ap4: 22.6 cm2 LAV(MOD-bp) Indexed: 16.9 ml/m2 LVLd ap4: 7.5 cm LAV(MOD-sp2): 30.1 ml EDV(MOD-sp4): 55.4 ml LAV(MOD-sp4): 28.2 ml EDV(sp4-el): 57.7 ml LVAs ap4: 12.1 cm2 LVLs ap4: 6.1 cm ESV(MOD-sp4): 21.7 ml ESV(sp4-el): 20.5 ml EF(MOD-sp4): 60.8 % EF(sp4-el): 64.4 % LVAd ap2: 24.8 cm2 SV(MOD-sp4): 33.6 ml SV(MOD-sp2): 41.5 ml LVLd ap2: 7.6 cm SI(MOD-sp4): 17.6 ml/m2 SI(MOD-sp2): 21.7 ml/m2 EDV(MOD-sp2): 65.9 ml EDV(sp2-el): 68.2 ml LVAs ap2: 13.3 cm2 LVLs ap2: 6.3 cm ESV(MOD-sp2): 24.4 ml ESV(sp2-el): 23.6 ml EF(MOD-sp2): 63.0 % SV(sp4-el): 37.1 ml Ao sinus diam: 3.[address] Junction: 3.1 cm LA dimension(2D): 3.0 cm LA A4 area: 12.1 cm2 RA A4 area: 11.3 cm2 TAPSE: 2.0 cm Time Measurements MV dec time: 0.23 sec Doppler Measurements & Calculations MV E max ryley: 69.4 cm/sec Lat Peak E' Ryley: 8.4 cm/sec Med Peak E' Ryley: 7.2 cm/sec MV A max ryley: 80.4 cm/sec E/E' lat: 8.3 E/E' med: 9.7 MV E/A: 0.86 MV dec slope: 299.6 cm/sec2 Ao V2 max: 123.1 cm/sec LV V1 max: 107.0 cm/sec Ao max P.1 mmHg LV V1 max P.6 mmHg Ao V2 mean: 87.8 cm/sec LV V1 mean P.5 mmHg Ao mean P.5 mmHg LV V1 mean: 73.3 cm/sec Ao V2 VTI: 28.6 cm LV V1 VTI: 25.9 cm AV (velocity ratio): 0.91 ADONIS(I,D): 3.4 cm2 ADONIS(V,D): 3.3 cm2 SV(LVOT): 97.4 ml PA V2 max: 79.2 cm/sec TR max ryley: 200.6 cm/sec TR max P.2 mmHg ECHO/Echo Complete Interpretation Summary Normal LV size. Left ventricular systolic function is normal. Mild to moderately dilated aortic root. The left ventricular ejection fraction is 65 %. Stage 1 diastolic dysfunction. Ordering Physician: Jillian Garcia Referring Physician: Jillian Garcia Performed By: Livier Eli RDCS
== END | disposition home or self-care (01) ==
LOC: CVS 08:52
PROVIDERS: PCP Nurse Practitioner Family; Referring Provider Nurse Practitioner Family; Visit Provider Nurse Practitioner Family
DX: I51.89 Other ill-defined heart diseases (principal)
CPT/HCPCS: 93306